=== PATIENT | male | born 1980 | race Caucasian/White ===

== ENCOUNTER 2020-10-05 19:06 | Emergency (ER) | payer OTHER, SELFPAY ==
[~2020-10-05 19:06] MED LIST: ATARAX25 MG PO; BENZTROPINE MESY1 MG PO; BREO ELLIPTA 11 EACH INH; BUSPIRONE HCL15 MG PO; CLARITIN10 MG PO; COLACE100 MG PO; COZAAR50 MG PO; FLONASE ALLER15.8 ML; IBUPROFEN800 MG PO; LATUDA40 MG PO; LIPITOR20 MG PO; LODINE400 MG PO; NORCO 5-325 TA1 EACH PO; SINGULAIR10 MG PO; VENTOLIN HFA IN18 GM INH; ZOFRAN4 MG PO
[2020-10-05 21:14] LABS: BASOPHIL 0.8 % (0-2); EOSINOPHIL 0.9 % (0-5); HCT 47.4 % (42.0-52.0); HGB 16.3 g/dl (13.2-18.0); LYMPHOCYTE 18.3 % (15-48); MCH 30.5 pg (25.0-31.0); MCHC 34.4 g/dL (32.0-36.0); MCV 88.8 fL (78.0-100.0); MONOCYTE 7.7 % (0-12); MPV 10.1 fL (6.0-9.5); NEUTROPHIL 72.1 % (41-80); NRBC 0; PLT 219 K/uL (150-400); RBC 5.34 M/uL (4.70-6.00); RDW 13.2 % (11.5-14.0); WBC 12.3 K/uL (4.0-10.5)
[2020-10-05 21:31] LABS: BUN/CREAT RATIO (CALC) 16.7 RATIO; CREATININE 0.78 mg/dL (0.67-1.17); POTASSIUM 3.8 mmol/L (3.5-5.1)
[2020-10-05] MEDS ORDERED: PREDNISONE 20MG20 MG PO (21:46)
== END 2020-10-05 22:19 | disposition home or self-care (01) ==
LOC: FER 19:06
PROVIDERS: Emergency Medicine
DX: J45.901 Unspecified asthma with (acute) exacerbation (principal); F17.210 Nicotine dependence, cigarettes, uncomplicated; Z88.1 Allergy status to other antibiotic agents; Z88.8 Allergy status to other drugs, medicaments and biological substances
CPT/HCPCS: 36415; 71045; 80048; 85025; 93005; 94640; 94664; J1885; J2930

== ENCOUNTER 2022-03-29 13:35 | Emergency (ER) | payer OTHER ==
[~2022-03-29 13:35] MED LIST changes: +PREDNISONE 20MG20 MG PO
[2022-03-29 16:12] LABS: BASOPHIL 1.1 % (0-2); EOSINOPHIL 1.1 % (0-5); LYMPHOCYTE 23.3 % (15-48); MCH 29.1 pg (25.0-31.0); MCHC 34.1 g/dL (32.0-36.0); MCV 85.3 fL (78.0-100.0); MONOCYTE 7.6 % (0-12); MPV 9.6 fL (6.0-9.5); NEUTROPHIL 66.6 % (41-80); NRBC 0; PLT 223 K/uL (150-400); RBC 5.16 M/uL (4.70-6.00); RDW 12.6 % (11.5-14.0); WBC 7.9 K/uL (4.0-10.5)
[2022-03-29 16:32] LABS: BUN/CREAT RATIO (CALC) 11.5 RATIO; CREATININE 0.87 mg/dL (0.67-1.17); POTASSIUM 4.2 mmol/L (3.5-5.1)
[2022-03-29] MEDS ORDERED: PREDNISONE 20MG20 MG PO (18:10)
== END 2022-03-29 18:44 | disposition home or self-care (01) ==
LOC: FER 13:35
PROVIDERS: Nurse Practitioner Family
DX: K20.90 Esophagitis, unspecified without bleeding (principal); I10 Essential (primary) hypertension; Z87.891 Personal history of nicotine dependence; Z88.1 Allergy status to other antibiotic agents; Z88.8 Allergy status to other drugs, medicaments and biological substances
CPT/HCPCS: 36415; 70490; 71046; 80048; 85025; J1100

== ENCOUNTER → 2022-05-08 | Day surgery (SDC) | payer OTHER ==
[~2022-05-08] VITALS: Ht 170.2 cm; Wt 133.8 kg
[~2022-05-08] MED LIST changes: +NEXIUM 40MG CAP40 MG PO; +PEPCID AC20 MG PO; +SPIRIVA RESPIMAT4 G1 INH
== END | disposition home or self-care (01) ==
LOC: FAS 10:02
DX: K31.9 Disease of stomach and duodenum, unspecified (principal); K63.5 Polyp of colon; K59.00 Constipation, unspecified; K44.9 Diaphragmatic hernia without obstruction or gangrene; K29.60 Other gastritis without bleeding; K57.30 Diverticulosis of large intestine without perforation or abscess without bleeding; K64.4 Residual hemorrhoidal skin tags; F17.290 Nicotine dependence, other tobacco product, uncomplicated; Z88.1 Allergy status to other antibiotic agents; Z88.8 Allergy status to other drugs, medicaments and biological substances
CPT/HCPCS: J2250; J2704; J7120